=== PATIENT | male | born 1955 | race African-American/Black ===

== ENCOUNTER 2020-03-22 17:46 | Emergency (ER) | payer OTHER ==
[~2020-03-22] VITALS: Ht 180.3 cm; Wt 88.6 kg
[2020-03-22 20:20] VITALS: BP 137/91
== END 2020-03-22 20:54 | disposition home or self-care (01) ==
LOC: EMS 17:46
DX: R00.2 Palpitations (principal); I10 Essential (primary) hypertension; Z76.0 Encounter for issue of repeat prescription; Z87.891 Personal history of nicotine dependence
CPT/HCPCS: 93005; 99283

== ENCOUNTER 2023-05-01 09:53 | Emergency (ER) | payer OTHER ==
[~2023-05-01] VITALS: Ht 177.8 cm; Wt 79.5 kg
[2023-05-01] MEDS ORDERED: FLEC50 PO (10:06)
[2023-05-01] MEDS ORDERED: LISI40TA9 PO (10:06)
[2023-05-01] MEDS ORDERED: AMLO-258 PO (10:20)
[2023-05-01] MEDS ORDERED: ATEN-72 PO ×2 (10:20→12:11)
[2023-05-01 10:21] VITALS: TEMP 98.2
[2023-05-01] MEDS: LABETALOL HCL 5 MG/ML 20 ML VIAL IVP ONE (10:37)
[2023-05-01 10:59] LABS: BASOPHILS % (AUTO) 0.6 % (0.0-2.0); EOSINOPHILS % (AUTO) 0.3 % (1.0-6.0); HEMATOCRIT 41.3 % (41-53); HEMOGLOBIN 13.4 g/dL (13.5-17.5); LYMPHOCYTES % (AUTO) 22.1 % (22.0-44.0); MEAN CORPUSCULAR HEMOGLOBIN 24.7 pg (26.0-34.0); MEAN CORPUSCULAR HGB CONC 32.5 G/dL (31.0-37.0); MEAN CORPUSCULAR VOLUME 76 fL (80-100); MONOCYTES # (AUTO) 0.4 K/uL (0.1-1.0); MONOCYTES % (AUTO) 9.2 % (2.0-9.0); NEUTROPHILS % (AUTO) 67.8 % (40.0-70.0); PLATELET COUNT (AUTO) 220 K/uL (150-450); RED BLOOD CELL COUNT(AUTO) 5.44 MIL/uL (4.50-5.90); WHITE BLOOD COUNT (AUTO) 4.4 K/uL (4.5-11.0)
[2023-05-01 11:13] LABS: ANION GAP 9 mmol/L (8-16); CALCIUM, TOTAL 9.2 mg/dL (8.8-10.5); CARBON DIOXIDE 27 mmol/L (22-29); CHLORIDE 104 mmol/L (98-107); CREATININE 1.36 mg/dL (0.60-1.30); GLOMERULAR FILTR. RATE CALC > 60 mL/min (>60); GLUCOSE,RANDOM 118 mg/dL (70-110); POTASSIUM 4.1 mmol/L (3.5-5.1); SODIUM SERUM 140 mmol/L (136-145); UREA NITROGEN, BLOOD 12 mg/dL (7-18)
[2023-05-01 11:19] LABS: TROPONIN I-HIGH SENSITIVITY 27 ng/L (<76)
[2023-05-01 11:27] LABS: THYROID STIMULATING HORMONE 0.82 uIU/mL (0.36-3.74)
[2023-05-01 11:51] LABS: RBC MORPHOLOGY COMMENT ABNORMAL RBC MORPH
[2023-05-01 12:10] VITALS: BP 139/89; PULSE 82; RESP 14
[2023-05-01] MEDS ORDERED: ACET-3385 PO (12:11)
== END 2023-05-01 12:29 | disposition home or self-care (01) ==
LOC: EMS 09:53
DX: R00.0 Tachycardia, unspecified (principal); R00.2 Palpitations; I10 Essential (primary) hypertension; Z87.891 Personal history of nicotine dependence
CPT/HCPCS: 99285; 96374; 71045; 80048; 84443; 84484; 85025; 36415; 93005; J3490

== ENCOUNTER 2023-05-25 08:08 | Emergency (ER) | payer OTHER ==
[~2023-05-25] VITALS: Ht 185.4 cm; Wt 95.9 kg
[~2023-05-25 08:08] MED LIST: ACET-3385 PO; ATEN-72 PO; FLEC50 PO; LISI40TA9 PO
[2023-05-25] MEDS ORDERED: QUET400T13 PO (08:13)
[2023-05-25] MEDS ORDERED: RISP4TAB94 PO (08:13)
[2023-05-25] MEDS ORDERED: BENZ2TAB71 PO (08:13)
[2023-05-25 08:14] VITALS: TEMP 98.6
[2023-05-25] MEDS ORDERED: AMLO-258 PO (08:37)
[2023-05-25] MEDS: KETOROLAC TROMETHAMINE 30 MG/ML VIAL IM ONE (08:42)
[2023-05-25] MEDS: AmLODIPine BESYLATE 10 MG TABLET PO ONE (08:42)
[2023-05-25 09:16] VITALS: BP 175/105; PULSE 81; RESP 16
== END 2023-05-25 09:44 | disposition home or self-care (01) ==
LOC: EMS 08:13
DX: I10 Essential (primary) hypertension (principal); G89.29 Other chronic pain; M54.6 Pain in thoracic spine; Z87.891 Personal history of nicotine dependence
CPT/HCPCS: 99283; 96372; J1885

== ENCOUNTER 2023-12-25 13:34 | Emergency (ER) | payer OTHER ==
[~2023-12-25] VITALS: Ht 185.4 cm; Wt 86.4 kg
[~2023-12-25 13:34] MED LIST changes: -ACET-3385 PO; +AMLO-258 PO; +BENZ2TAB84 PO; -LISI40TA9 PO; +QUET400T13 PO; +RISP4TAB94 PO
[2023-12-25 13:51] VITALS: TEMP 98.4
[2023-12-25] MEDS ORDERED: FLEC50TA3 PO (13:53)
[2023-12-25] MEDS ORDERED: AMLO10TA55 PO (13:53)
[2023-12-25] MEDS: PERTUSS(ACELL),DIPH,TET/PF 0.5 ML SYRINGE [ADULT] IM. ONE (16:29)
[2023-12-25] MEDS: RABIES IMMUNE GLOBULIN/PF 150 UNIT/ML 10 ML VIAL IM. ONE (16:38)
[2023-12-25] MEDS: RABIES VACCINE, HUMAN DIPLOID/PF 2.5 UNITS/ML VIAL IM. ONE (16:42)
[2023-12-25] MEDS ORDERED: IBUP-1492 PO (16:51)
[2023-12-25] MEDS ORDERED: AMOX-457 PO (16:51)
[2023-12-25] MEDS: AMOX TR/POT CLAV 875 MG/125 MG TABLET PO ONE (17:37)
[2023-12-25 17:45] VITALS: BP 127/76; PULSE 73; RESP 18; O2SAT 99
[2023-12-27] MEDS ORDERED: AMOX-457 PO (10:56)
[2023-12-27] MEDS ORDERED: IBUP-1492 PO (10:56)
== END 2023-12-25 18:19 | disposition home or self-care (01) ==
LOC: EMS 13:34
DX: S61.051A Open bite of right thumb without damage to nail, initial encounter (principal); I10 Essential (primary) hypertension; Z28.39 Other underimmunization status; W54.0XXA Bitten by dog, initial encounter; Y93.89 Activity, other specified; Y92.89 Other specified places as the place of occurrence of the external cause; Y99.8 Other external cause status
CPT/HCPCS: 90375; 90471; 90472; 90675; 90715; 96372; 99284

== ENCOUNTER 2023-12-27 12:27 | Emergency (ER) | payer OTHER ==
[~2023-12-27] VITALS: Ht 188 cm; Wt 95.5 kg
[~2023-12-27 12:27] MED LIST changes: -AMLO-258 PO; +AMLO10TA55 PO; +AMOX-457 PO; -BENZ2TAB84 PO; -FLEC50 PO; +FLEC50TA3 PO; +IBUP-1492 PO
[2023-12-27 12:37] VITALS: BP 128/81; PULSE 70; RESP 16; TEMP 98; O2SAT 100
[2023-12-27] MEDS: RABIES VACCINE, HUMAN DIPLOID/PF 2.5 UNITS/ML VIAL IM. ONE (13:09)
== END 2023-12-27 13:16 | disposition home or self-care (01) ==
LOC: EMS 12:27
DX: Z48.00 Encounter for change or removal of nonsurgical wound dressing (principal); I10 Essential (primary) hypertension; Z20.3 Contact with and (suspected) exposure to rabies; Z23 Encounter for immunization
CPT/HCPCS: 90471; 90675; 99283

== ENCOUNTER → 2023-12-31 | Emergency (ER) | payer OTHER ==
[~2023-12-31] VITALS: Ht 188 cm; Wt 95.5 kg
[2023-12-31 13:17] VITALS: BP 117/72; PULSE 74; RESP 18; TEMP 97.9; O2SAT 100
[2023-12-31] MEDS: RABIES VACCINE, HUMAN DIPLOID/PF 2.5 UNITS/ML VIAL IM. ONE (13:51)
== END | disposition home or self-care (01) ==
LOC: EMS 13:00
DX: S61.051A Open bite of right thumb without damage to nail, initial encounter (principal); I10 Essential (primary) hypertension; Z23 Encounter for immunization; Z20.3 Contact with and (suspected) exposure to rabies; W54.0XXA Bitten by dog, initial encounter; Y93.89 Activity, other specified; Y92.89 Other specified places as the place of occurrence of the external cause; Y99.8 Other external cause status
CPT/HCPCS: 90471; 90675; 99283

== ENCOUNTER 2024-01-07 10:23 | Emergency (ER) | payer OTHER ==
[2024-01-07] MEDS: RABIES VACCINE, HUMAN DIPLOID/PF 2.5 UNITS/ML VIAL IM. ONE (11:21)
== END 2024-01-07 11:32 | disposition home or self-care (01) ==
LOC: EMS 10:24
DX: Z20.3 Contact with and (suspected) exposure to rabies (principal); Z23 Encounter for immunization; I10 Essential (primary) hypertension
CPT/HCPCS: 90471; 90675; 99283